=== PATIENT | male | born 1990 | race Caucasian/White ===

== ENCOUNTER 2019-01-30 12:21 | Emergency (ER) | payer OTHER ==
[~2019-01-30] VITALS: Ht 182.9 cm; Wt 63.6 kg
[~2019-01-30 12:21] MED LIST: ASPI-1264 PO; MECL-111 PO
[2019-01-30 12:31] VITALS: BP 124/68
[2019-01-30] MEDS ORDERED: ipratropium/albuterol 3ml nebule NEB ONE (12:50)
--- NOTE | 2019-01-30 13:22 | NUR ---
pt receving neb treatment at this time.
[2019-01-30] MEDS ORDERED: BENZ-16 PO (13:30)
== END 2019-01-30 13:40 | disposition home or self-care (01) ==
LOC: ER 12:22
DX: J98.01 Acute bronchospasm (principal); J40 Bronchitis, not specified as acute or chronic; F41.9 Anxiety disorder, unspecified; Z88.6 Allergy status to analgesic agent; Z79.82 Long term (current) use of aspirin; Z79.899 Other long term (current) drug therapy
CPT/HCPCS: 71046; 93005; 94640; 94760; 99283

== ENCOUNTER 2019-03-20 09:33 | Emergency (ER) | payer OTHER ==
[~2019-03-20] VITALS: Ht 185.4 cm; Wt 63.6 kg
[2019-03-20 09:42] VITALS: BP 118/52
[2019-03-20] MEDS ORDERED: azithromycin 250mg tablet PO ONE (10:00)
[2019-03-20] MEDS ORDERED: AZIT-63 PO (10:00)
[2019-03-20] MEDS ORDERED: ibuprofen tablet 400 MG TABLET PO ONE (10:00)
[2019-03-20] MEDS ORDERED: dexamethasone 4mg tablet PO ONE (10:00)
== END 2019-03-20 10:17 | disposition home or self-care (01) ==
LOC: ER 09:33
DX: J02.9 Acute pharyngitis, unspecified (principal); F41.9 Anxiety disorder, unspecified; Z88.6 Allergy status to analgesic agent; Z79.899 Other long term (current) drug therapy; Z79.82 Long term (current) use of aspirin
CPT/HCPCS: 99284

== ENCOUNTER 2020-12-08 16:57 | Emergency (ER) | payer MEDICAID, OTHER ==
[~2020-12-08 16:57] MED LIST changes: -MECL-111 PO; +MECL-159 PO
[2020-12-08 17:49] VITALS: BP 129/85
[2020-12-08 19:48] LABS: BASOPHILS % (AUTO) 0.5 % (0-1); EOSINOPHILS % (AUTO) 0.7 % (0-6); LYMPHOCYTES # (AUTO) 1.4 X10'3 (1.1-4.8); LYMPHOCYTES % (AUTO) 25.1 % (21-51); MEAN CORPUSCULAR HEMOGLOBIN 27.6 PG (27.0-31.0); MEAN CORPUSCULAR HGB CONC 33.4 g/dL (33.0-36.5); MEAN CORPUSCULAR VOLUME 82.6 FL (78-98); MEAN PLATELET VOLUME 8.6 FL (7.4-10.4); MONOCYTES # (AUTO) 0.5 X10'3 (0-0.9); MONOCYTES % (AUTO) 8.8 % (2-12); NEUTROPHILS # (AUTO) 3.5 X10'3 (1.8-7.7); NEUTROPHILS % (AUTO) 64.9 % (42-75); PLATELET COUNT 280 X10'3 (140-440); RED BLOOD COUNT 5.08 X10'6 (4.70-6.10); RED CELL DISTRIBUTION WIDTH 14.2 % (11.5-14.5); WHITE BLOOD COUNT 5.4 X10'3 (4.5-11.0)
[2020-12-08 20:09] LABS: ALANINE AMINOTRANSFERASE 20 U/L (12-78); ALBUMIN 4.6 G/DL (3.4-5.0); ALBUMIN/GLOBULIN RATIO 1.4 (1.1-1.5); ALKALINE PHOSPHATASE 58 IU/L (46-116); ANION GAP 9 (8-16); ASPARTATE AMINO TRANSFERASE 18 U/L (10-37); BILIRUBIN,TOTAL 0.6 MG/DL (0.1-1.0); BLOOD UREA NITROGEN 13 MG/DL (7-18); BUN/CREATININE RATIO 13.4 (5.4-32.0); CALCIUM 8.9 MG/DL (8.5-10.1); CHLORIDE 109 MMOL/L (99-107); CREATININE 0.97 MG/DL (0.60-1.10); GLUCOSE 98 MG/DL (70-104); POTASSIUM 4.5 MMOL/L (3.5-5.1); SODIUM 145 MMOL/L (135-145); TOTAL CARBON DIOXIDE 27.4 MMOL/L (24-32); TOTAL PROTEIN 7.8 G/DL (6.4-8.2); eGFR 90 ML/MIN
[2020-12-08 20:18] LABS: ETHANOL < 0.010 GM/DL (0.0-0.010)
[2020-12-08 20:57] LABS: CLARITY,URINE CLEAR (Clear); COLOR,URINE YELLOW (Yellow); GLUCOSE, URINE NEGATIVE (Neg); KETONES,URINE 15 mg/dl (Neg); LEUKOCYTE ESTERASE ,URINE NEGATIVE (Neg); NITRITES, URINE NEGATIVE (Neg); OCCULT BLOOD,URINE NEGATIVE (Neg); PROTEIN,URINE NEGATIVE (Neg)
[2020-12-08 20:58] LABS: UA COLLECTION TYPE CLN CATCH MIDSTREAM
[2020-12-08 21:06] LABS: URINE AMPHETAMINE SCREEN NEGATIVE (Neg); URINE BARBITUATE SCREEN NEGATIVE (Neg); URINE BENZODIAZEPINES SCREEN NEGATIVE (Neg); URINE CANNABINOID SCREEN NEGATIVE (Neg); URINE COCAINE SCREEN NEGATIVE (Neg); URINE METHADONE SCREEN NEGATIVE (Neg); URINE OPIATE SCREEN NEGATIVE (Neg); URINE PHENCYCLIDINE SCREEN NEGATIVE (Neg)
--- NOTE | 2020-12-08 21:06 | NUR ---
and baby bedside; taking belongings home.
[2020-12-09] MEDS ORDERED: OLANZapine 5mg rapidly disint. tablet PO ONE (00:05)
[2020-12-09] MEDS ORDERED: LORazepam 1 MG tablet PO ONE (00:05)
--- NOTE | 2020-12-09 00:40 | NUR ---
PATIENT'S PACKET WAS SENT TO [facility].
--- NOTE | 2020-12-09 01:46 | NUR ---
pt resting in bed, bed moved to [address]omas 12. sleeping at this time, no obvious distress and even unlabored respirations.
--- NOTE | 2020-12-09 04:45 | NUR ---
PT RESTING IN NO SIGNS OF DISTRESS AT THIS TIME, EVEN UNLABORED RESPIRATIONS
--- NOTE | 2020-12-09 06:17 | NUR ---
PT WOKE SLIGHTLY WITH EYES BARELY OPEN. PT ADVISED HE WAS MOVED TO THE HALLWAY DUE TO NEEDING PROVIOUS BED FOR EMERGENT PT. PT VERBALIZED UNDERSTANDING AND WENT BACK TO SLEEP.
--- NOTE | 2020-12-09 07:00 | NUR ---
Received Pt asleep in bed w/o distress. Pt transfered from main ER to ER overflow.
--- NOTE | 2020-12-09 09:37 | NUR ---
Pt ate breakfast and met with [facility]. Pt returned to sleep. Pt reports panic attack and needing to connect with insurance.
--- NOTE | 2020-12-09 14:36 | NUR ---
Pt.'s 's cell phone: Kenyatta Ramírez [phone]
== END 2020-12-09 15:11 | disposition home or self-care (01) ==
LOC: ER 16:57
DX: R45.851 Suicidal ideations (principal); F32.9 Major depressive disorder, single episode, unspecified; F41.9 Anxiety disorder, unspecified; F90.9 Attention-deficit hyperactivity disorder, unspecified type; Z91.041 Radiographic dye allergy status; Z91.013 Allergy to seafood; Z79.82 Long term (current) use of aspirin; Z79.899 Other long term (current) drug therapy
CPT/HCPCS: 36415; 80053; 80305; 80320; 81003; 84443; 85025; 99285

== ENCOUNTER 2023-08-31 16:41 | Emergency (ER) | payer BC, MEDICAID ==
[~2023-08-31] VITALS: Ht 182.9 cm; Wt 63.6 kg
[~2023-08-31 16:41] MED LIST changes: -MECL-159 PO; +MECL-302 PO
[2023-08-31 16:59] VITALS: BP 114/76; PULSE 92; RESP 18; TEMP 97.8; O2SAT 98
== END 2023-08-31 17:20 | disposition home or self-care (01) ==
LOC: ER 16:41
DX: B34.9 Viral infection, unspecified (principal); F41.9 Anxiety disorder, unspecified; Z91.040 Latex allergy status; Z79.899 Other long term (current) drug therapy
CPT/HCPCS: 99281

== ENCOUNTER 2024-04-18 15:01 | Emergency (ER) | payer BC ==
[~2024-04-18] VITALS: Ht 185.4 cm; Wt 63.2 kg
[2024-04-18] MEDS: ketorolac trometh 15mg/ml vial 15 MG/ML ML IM ONE (16:01)
[2024-04-18 16:17] VITALS: BP 120/68; PULSE 78; RESP 16; TEMP 98.2; O2SAT 99
== END 2024-04-18 16:20 | disposition home or self-care (01) ==
LOC: ER 15:01
DX: M25.512 Pain in left shoulder (principal); B34.9 Viral infection, unspecified; F41.9 Anxiety disorder, unspecified; I49.9 Cardiac arrhythmia, unspecified; Z91.018 Allergy to other foods
CPT/HCPCS: 93005; 99283

== ENCOUNTER 2024-08-08 18:21 | Emergency (ER) | payer BC ==
[~2024-08-08] VITALS: Ht 185.4 cm; Wt 64.2 kg
[2024-08-08 18:22] VITALS: TEMP 98.5
[2024-08-08 19:30] LABS: BILIRUBIN,URINE NEGATIVE (Neg); CLARITY,URINE CLEAR (Clear); COLOR,URINE YELLOW (Yellow); GLUCOSE, URINE NEGATIVE (Neg); KETONES,URINE NEGATIVE (Neg); LEUKOCYTE ESTERASE ,URINE NEGATIVE (Neg); NITRITES, URINE NEGATIVE (Neg); OCCULT BLOOD,URINE MODERATE (Neg); PROTEIN,URINE NEGATIVE (Neg); UROBILINOGEN,URINE 0.2 E.U/dL (0.2-1.0)
[2024-08-08 19:31] LABS: UA COLLECTION TYPE CLN CATCH MIDSTREAM
[2024-08-08 19:38] LABS: BACTERIA,URINE FEW /HPF (Neg); SQUAMOUS EPITHELIAL CELL,UR FEW /LPF (FEW); WBC,URINE 0-4 /HPF (0-4)
[2024-08-08 19:40] LABS: BASOPHILS % (AUTO) 0.3 % (0-1); EOSINOPHILS # (AUTO) 0.3 X10'3 (0-0.9); EOSINOPHILS % (AUTO) 3.6 % (0-6); HEMATOCRIT 40.3 % (42.0-52.0); HEMOGLOBIN 13.7 g/dl (14.0-17.9); LYMPHOCYTES # (AUTO) 1.9 X10'3 (1.1-4.8); MEAN CORPUSCULAR HGB CONC 33.9 g/dL (33.0-36.5); MEAN CORPUSCULAR VOLUME 79.6 FL (78-98); MEAN PLATELET VOLUME 8.1 FL (7.4-10.4); MONOCYTES # (AUTO) 0.8 X10'3 (0-0.9); NEUTROPHILS % (AUTO) 66.1 % (42-75); PLATELET COUNT 272 X10'3 (140-440); RED BLOOD COUNT 5.06 X10'6 (4.70-6.10); RED CELL DISTRIBUTION WIDTH 13.9 % (11.5-14.5)
[2024-08-08 19:48] LABS: ALBUMIN 4.2 G/DL (3.4-5.0); ANION GAP 10 (8-16); BLOOD UREA NITROGEN 9 MG/DL (7-18); BUN/CREATININE RATIO 9.3 (10.0-20.0); CALCIUM 8.8 MG/DL (8.5-10.1); CHLORIDE 104 MMOL/L (99-107); CREATININE 0.97 MG/DL (0.60-1.10); GLUCOSE 102 MG/DL (70-104); SODIUM 143 MMOL/L (135-145); TOTAL CARBON DIOXIDE 28.6 MMOL/L (24-32); eCRCL 97 ML/MIN; eGFR 89 ML/MIN
[2024-08-08 22:47] VITALS: O2SAT 99
[2024-08-08 23:52] VITALS: BP 102/75; PULSE 73; RESP 14
== END 2024-08-08 23:53 | disposition home or self-care (01) ==
LOC: ER 18:22
DX: R31.9 Hematuria, unspecified (principal); Z88.8 Allergy status to other drugs, medicaments and biological substances; Z91.041 Radiographic dye allergy status; Z79.82 Long term (current) use of aspirin
CPT/HCPCS: 36415; 80048; 81001; 85025; 99283; 99284